=== PATIENT | female | born 1955 | race Caucasian/White ===

== ENCOUNTER 2023-06-05 13:25 | Emergency (ER) | payer MEDICAID, MEDICARE ==
[~2023-06-05] VITALS: Ht 144.8 cm; Wt 56.7 kg
[2023-06-05 13:59] VITALS: BP_SYST 128; PULSE 74; RESP 17; TEMP 98.3; O2SAT 97
--- NOTE | 2023-06-05 14:05 | NUR ---
Patient BIB from home by daughter due to knee pain on the left knee with some swelling. Patient denies allergies, is a&ox4 and stable. Patient is able to ambulate.
--- NOTE | 2023-06-05 14:10 | NUR ---
PT BIB SELF AWAKE AND ART AOX4, NO SOB OR DISTRESS. P C/O PAIN TO LLE 8/10 PAIN FOR X6 DAYS. PT HAS HX OF HTN, LEFT LAD, HLD, DM2, OSTEOPOROSIS,
--- NOTE | 2023-06-05 14:20 | NUR ---
MD DR ESPINOSA AT [facility]
[2023-06-05] MEDS ORDERED: HYDROcodone/ACETAMIN 7.5-325 MG TAB PO ONE (14:30)
[2023-06-05] MEDS ORDERED: IBUPROFEN 600 MG TABLET PO ONE (14:30)
[2023-06-05 14:40] LABS: BASOPHILS % (AUTO) 0.3 % (0.0-2.0); EOSINOPHILS # (AUTO) 0.1 K/uL (0.0-0.4); HEMOGLOBIN 12.8 g/dL (12.0-16.0); LYMPHOCYTES # (AUTO) 2.3 K/uL (1.0-5.5); LYMPHOCYTES % (AUTO) 25.9 % (20.5-51.5); MEAN CORPUSCULAR HEMOGLOBIN 30 pg (27-31); MEAN CORPUSCULAR HGB CONC 33 % (32-36); MEAN CORPUSCULAR VOLUME 91 fL (79.0-98.0); MONOCYTES # (AUTO) 0.6 K/uL (0.0-1.0); MONOCYTES % (AUTO) 6.4 % (1.7-9.3); NEUTROPHILS % (AUTO) 66.4 % (40.0-70.0); PLATELET COUNT (AUTO) 189 K/uL (130-430); RED BLOOD CELL COUNT(AUTO) 4.28 MIL/uL (4.2-6.2); RED CELL DISTRIBUTION WIDTH 13.6 % (9.0-15.0)
[2023-06-05 14:48] LABS: ERYTHROCYTE SEDIMENTATION RATE 15 MM/HR (0-20)
[2023-06-05 14:56] LABS: CALCIUM 8.7 mg/dL (8.4-11.0); CREATININE 0.82 mg/dL (0.55-1.30)
[2023-06-05 15:10] LABS: ALBUMIN 3.3 g/dL (3.4-4.8); TOTAL BILIRUBIN 0.3 mg/dL (0.0-1.0); URIC ACID 6.1 mg/dL (2.4-7.0)
--- NOTE | 2023-06-05 16:02 | NUR ---
Ordered Diabetic food tray.
[2023-06-05 18:51] VITALS: BP_SYST 122; PULSE 68; RESP 15; TEMP 97.9; O2SAT 97
--- NOTE | 2023-06-05 18:51 | NUR ---
Patient given written and verbal discharge instructions and verbalizes understanding. ER MD Daniels discussed with patient the results and treatment provided. Patient in stable condition and ambulatory. ID arm band removed. Written RX was left behind. Unit Sec notified. Patient educated on pain management and to follow up with PMD. Pain Scale 4/10. Opportunity for questions provided and answered.
== END 2023-06-05 18:51 | disposition home or self-care (01) ==
LOC: SED 13:25
DX: M13.862 Other specified arthritis, left knee (principal); M25.562 Pain in left knee; E11.9 Type 2 diabetes mellitus without complications; I10 Essential (primary) hypertension; Z79.899 Other long term (current) drug therapy
CPT/HCPCS: 36415; 73564; 80053; 84550; 85025; 85651-TC; 93971; 99284

== ENCOUNTER 2024-04-20 17:07 | Emergency (ER) | payer MEDICARE, MEDICAID ==
[~2024-04-20] VITALS: Ht 144.8 cm; Wt 56.7 kg
[2024-04-20 17:25] VITALS: BP_SYST 140; PULSE 78; RESP 18; TEMP 98; O2SAT 99
[2024-04-20] MEDS: KETOROLAC TROMETHAMINE 30 MG VIAL IM ONE (17:40)
[2024-04-20 18:58] VITALS: BP_SYST 121; PULSE 62; RESP 16; TEMP 97.9; O2SAT 98
[2024-04-20] MEDS ORDERED: DICL50TA9 PO (19:19)
[2024-04-20] MEDS ORDERED: DICL20GE TP (19:19)
== END 2024-04-20 19:31 | disposition home or self-care (01) ==
LOC: SED 17:07
DX: M50.123 Cervical disc disorder at C6-C7 level with radiculopathy (principal); E11.9 Type 2 diabetes mellitus without complications; I10 Essential (primary) hypertension; Z98.61 Coronary angioplasty status
CPT/HCPCS: 99285; 72125; 93005; 96372; J1885

== ENCOUNTER 2024-08-13 12:29 | Emergency (ER) | payer MEDICARE, MEDICAID ==
[~2024-08-13] VITALS: Ht 149.9 cm; Wt 70.3 kg
[~2024-08-13 12:29] MED LIST: DICL20GE TP; DICL50TA9 PO
[2024-08-13 12:37] VITALS: BP_SYST 125; PULSE 75; RESP 18; TEMP 98.3; O2SAT 98
[2024-08-13] MEDS: LORazepam 1 MG TABLET PO ONE (13:05)
[2024-08-13] MEDS: IBUPROFEN 600 MG TABLET PO ONE (13:05)
[2024-08-13 13:21] LABS: BASOPHILS % (AUTO) 0.4 % (0.0-2.0); EOSINOPHILS # (AUTO) 0.1 K/uL (0.0-0.4); EOSINOPHILS % (AUTO) 0.7 % (0.0-4.0); HEMATOCRIT 40.6 % (36-48); HEMOGLOBIN 13.1 g/dL (12.0-16.0); LYMPHOCYTES # (AUTO) 2.3 K/uL (1.0-5.5); LYMPHOCYTES % (AUTO) 22.7 % (20.5-51.5); MEAN CORPUSCULAR HEMOGLOBIN 30 pg (27-31); MEAN CORPUSCULAR HGB CONC 32 % (32-36); MEAN CORPUSCULAR VOLUME 94 fL (79.0-98.0); MONOCYTES # (AUTO) 0.6 K/uL (0.0-1.0); MONOCYTES % (AUTO) 6.2 % (1.7-9.3); PLATELET COUNT (AUTO) 212 K/uL (130-430); RED BLOOD CELL COUNT(AUTO) 4.32 MIL/uL (4.2-6.2); RED CELL DISTRIBUTION WIDTH 13.8 % (9.0-15.0)
[2024-08-13 13:23] LABS: ALANINE AMINOTRANSFERASE 29 U/L (12-78); ALBUMIN 3.6 g/dL (3.4-4.8); ANION GAP 13 (5-15); ASPARTATE AMINOTRANSFERASE 21 U/L (10-37); BILIRUBIN,DIRECT 0.1 mg/dL (0.0-0.3); CALCIUM 8.7 mg/dL (8.4-11.0); CARBON DIOXIDE 23 mmol/L (23-29); CHLORIDE 106 mmol/L (98-107); CREATINE KINASE, TOTAL 100 U/L (26-192); CREATININE 1.02 mg/dL (0.55-1.30); GLUCOSE 205 mg/dL (74-106); POTASSIUM 4.5 mmol/L (3.5-5.1); SODIUM SERUM 142 mmol/L (136-145); TOTAL BILIRUBIN 0.3 mg/dL (0.0-1.0); TOTAL PROTEIN, SERUM 6.6 g/dL (6.4-8.3); UREA NITROGEN, BLOOD 28 mg/dL (8-21)
[2024-08-13] MEDS ORDERED: LORA-259 PO (15:16)
[2024-08-13] MEDS ORDERED: IBUP-1969 PO (15:16)
[2024-08-13 15:39] VITALS: BP_SYST 127; PULSE 67; RESP 18; TEMP 98; O2SAT 97
== END 2024-08-13 15:42 | disposition home or self-care (01) ==
LOC: SED 12:29
DX: R25.2 Cramp and spasm (principal); E11.9 Type 2 diabetes mellitus without complications; I10 Essential (primary) hypertension; Z95.5 Presence of coronary angioplasty implant and graft; Z79.899 Other long term (current) drug therapy
CPT/HCPCS: 36415; 80048; 80076; 82550; 83735; 85025; 93970; 99284